=== PATIENT | female | born 1990 | race African-American/Black ===

== ENCOUNTER 2019-12-23 16:31 | Emergency (ER) | payer MEDICARE ==
--- NOTE | 2019-12-23 17:38 | ER Document Report ---
ED Psych Disorder / Suicide - General Mode of Arrival: Ambulatory Information source: Patient <ABRAHAM THOMPSON - Last Filed: 12/23/19 17:55> <OFELIA OMER - Last Filed: 12/24/19 00:44> <WANDER BONILLA - Last Filed: 12/24/19 10:36> <JULIEN HOLT Broderick - Last Filed: 12/24/19 11:18> - General Chief Complaint: Psych Problem Stated Complaint: EVALUATION Time Seen by Provider: 12/23/19 16:56 Primary Care Provider: [facility] [Outside] - Follow up as needed [facility] [Outside] - Follow up in 3-5 days Notes: Patient is a 29-year-old female presenting to the emergency department with chief complaint of depression and anxiety. Patient reports that she just moved to [place] a few days ago. She states that she is taking medication for depression and anxiety but states she does not feel that it is helping her. She arrives to the emergency department with nbw-[id number]-[id number]-old son Zechariah. She is calm and cooperative. She reports feeling very overwhelmed with her situation, she is staying in a hotel currently and has no resources in [place]. She has no family support or friends. She reports that several years ago she did attempt suicide by overdose but never told anybody about it so she did not seek medical treatment. She does report that for the last few months she has been having suicidal thoughts although she has not told anybody about these as she was worried that they would think she cannot take care of her child. *Of note, patient and child both appear very clean, well groomed and well taken care of. The child is smiling, interactive and running around the room. There is no indication to me that there is any abuse or neglect going on with the child. (ABRAHAM THOMPSON) - Related Data Allergies/Adverse Reactions: aripiprazole [From [facility]] Adverse Reaction (Verified 12/23/19 19:00) Past Medical History - General Information source: Patient - Social History Smoking Status: Unknown if Ever Smoked Family History: Reviewed & Not Pertinent Patient has suicidal ideation: Yes Patient has homicidal ideation: No - Medical History Medical History: Other - Pituitary gland tumor Psychiatric Medical History: Reports: Hx Anxiety, Hx Depression <ABRAHAM THOMPSON - Last Filed: 12/23/19 17:55> Review of Systems - Review of Systems Neurological/Psychological: See HPI, Headaches -: Yes All other systems reviewed and negative <ABRAHAM THOMPSON - Last Filed: 12/23/19 17:55> Physical Exam <ABRAHAM THOMPSON - Last Filed: 12/23/19 17:55> - Vital signs Vitals: Temp 99.1 F 12/23/19 16:34 - Notes Notes: PHYSICAL EXAMINATION: GENERAL: Well-appearing, well-nourished and in no acute distress. HEAD: Atraumatic, normocephalic. EYES: Pupils equal round and reactive to light, extraocular movements intact, conjunctiva are normal. ENT: Nares patent, oropharynx clear without exudates. Moist mucous membranes. NECK: Normal range of motion, supple without lymphadenopathy LUNGS: Breath sounds clear to auscultation bilaterally and equal. No wheezes rales or rhonchi. HEART: Regular rate and rhythm without murmurs ABDOMEN: Soft, nontender, nondistended abdomen. No guarding, no rebound. No masses appreciated. Female : deferred Musculoskeletal: Normal range of motion, no pitting or edema. No cyanosis. NEUROLOGICAL: Cranial nerves grossly intact. Normal speech, normal gait. Normal sensory, motor exams PSYCH: Flat affect, tearful. SKIN: Warm, Dry, normal turgor, no rashes or lesions noted. (ABRAHAM THOMPSON) Course <ABRAHAM THOMPSON - Last Filed: 12/23/19 17:55> - Laboratory Result Diagrams: 12/23/19 18:00 12/23/19 18:00 - Diagnostic Test Radiology reviewed: Reports reviewed <OFELIA OMER - Last Filed: 12/24/19 00:44> - Laboratory Result Diagrams: 12/23/19 18:00 12/23/19 18:00 <WANDER BONILLA - Last Filed: 12/24/19 10:36> - Laboratory Result Diagrams: 12/23/19 18:00 12/23/19 18:00 <JULIEN HOLT - Last Filed: 12/24/19 11:18> - Re-evaluation Re-evalutation: 12/23/19 17:54 Patient came into the emergency department in hopes of getting help with her mental health medications. She reports she is taking medication for depression and anxiety and states it is not helping. Ultimately during interview patient does endorse suicidal thoughts over the last few months but states she has not acted on them. Her 2-year-old son is here in the emergency department with her. She has no family or friends in the area. Blane interviewed the patient initially with me, the plan will be to keep the patient here in the emergency d epartment due to her suicidal ideations. Blane will call [facility]/social welfare clerk in hopes of obtaining some respite care for the child while the mother is here seeking help. 12/23/19 17:55 Handoff given to CRISTA Majano. Patient currently pending medical clearance. I did add on a head CT as patient reports history of pituitary gland tumor states that she has not had an MRI or CT done on this in several years and she has been having headaches. (ABRAHAM THOMPSON) 12/23/19 21:56 Patient's resting comfortably all test results and CAT scan results were reviewed with patient. She is medically clear pending placement for suicidal ideation (OFELIA OMER) 12/24/19 11:17 I have spoken with Blane Ragland the psychiatric team, I have evaluated the patient. CPS is in speaking with the patient at this time. Patient admits that she lied to providers yesterday when coming in about being suicidal she denies suicidal or homicidal ideation. She states she just did not have a place to stay and had no way to pay for the hotel they were staying in so she thought that she would be able to at least have a place to stay if she told people that she was suicidal. The psychiatric team has a care plan in place for the patient that she is in agreement with. Will discharge home at this time after CPS has finished with the patient (JULIEN HOLT) - Vital Signs Vital signs: Temp Pulse Resp BP Pulse Ox 98.4 F 86 17 105/63 100 12/24/19 08:17 12/24/19 08:17 12/24/19 08:17 12/24/19 08:17 12/24/19 08:17 - Laboratory Laboratory results interpreted by me: 12/23/19 12/23/19 12/23/19 18:00 18:00 18:00 Hgb 10.3 L Hct 32.2 L MCV 74 L MCH 23.6 L MCHC 31.9 L RDW 17.3 H Ur Leukocyte Esterase LARGE H Salicylates < 1.0 L Acetaminophen < 10 L - EKG Interpretation by Me Additional EKG results interpreted by me: 12/23/19 22:06 ekg seen and evaluated by ED. DR Kenny. NSR no acute STEMI,rate 90 (OFELIA OMER) Discharge <ABRAHAM THOMPSON - Last Filed: 12/23/19 17:55> <OFELIA OMER - Last Filed: 12/24/19 00:44> <WANDER BONILLA - Last Filed: 12/24/19 10:36> <JULIEN HOLT - Last Filed: 12/24/19 11:18> - Discharge Clinical Impression: Homelessness Condition: Stable Disposition: HOME, SELF-CARE Additional Instructions: You have been evaluated by both medical and behavioral health teams for your reported thoughts of wanting to harm yourself and request of medication adjustments and have been deemed appropriate for discharge. While in the emergency department you received the following services: Medical screening and assessment, nursing services, dietary services, one-on-one counseling and/or psychotherapy, environmental services, and continuous observation by a patient drug safety specialist. You are reminded of the importance on providing correct information when seeking assistance so appropriate services can by identified and referrals made. You are to meet with [facility] CPS at 1100-1130am this morning to discuss with them the next steps in regards to your son. A travel voucher was secured by [facility] for you to take a taxi to the [facility] building. You are recommended to continue working with [facility] to establish a local outpatient mental health provider; they will be contacting you today. You disclosed you have over 2 weeks of medications, so should be covered until you can get outpatient appointments. Medication adjustment were not done as you are experiencing temporary situational crisis that you are now getting assistance through from the appropriate programs/providers. Your medication can be evaluated with your outpatient mental health provider at your upcoming appointment. You are recommended to obtain both medication management for symptom management and therapeutic services to build your positive coping skills and work through your thoughts and emotions surrounding your recent traumas. AT ANY TIME, IF YOUR SYMPTOMS CHANGE SIGNIFICANTLY OR WORSEN OR YOU DEVELOP NEW SYMPTOMS, RETURN TO THE EMERGENCY DEPARTMENT IMMEDIATELY FOR RE-EVALUATION. Referrals: [facility] [Outside] - Follow up in 3-5 days [facility] [Outside] - Follow up as needed
[2019-12-23 18:14] LABS: ABSOLUTE EOSINOPHILS # (AUTO) 0.2 10^3/uL (0.0-0.6); ABSOLUTE LYMPHOCYTES (AUTO) 2.2 10^3/uL (0.5-4.7); ABSOLUTE MONOCYTES (AUTO) 0.5 10^3/uL (0.1-1.4); ABSOLUTE NEUT (AUTO) 4.8 10^3/uL (1.7-8.2); BASOPHILS % (AUTO) 0.5 % (0-2); EOSINOPHILS % (AUTO) 2.1 % (0-6); HEMATOCRIT 32.2 % (36.0-47.0); HEMOGLOBIN 10.3 g/dL (12.0-15.5); LYMPHOCYTES % (AUTO) 28.6 % (13-45); MEAN CORPUSCULAR HEMOGLOBIN 23.6 pg (27.0-33.4); MEAN CORPUSCULAR HGB CONC 31.9 g/dL (32.0-36.0); MEAN CORPUSCULAR VOLUME 74 fl (80-97); MONOCYTES % (AUTO) 6.6 % (3-13); PLATELET COUNT 437 10^3/uL (150-450); RED BLOOD COUNT 4.34 10^6/uL (3.72-5.28); RED CELL DISTRIBUTION WIDTH 17.3 % (11.5-14.0); SEGMENTED NEUTROPHILS % (AUTO) 62.2 % (42-78); TOTAL CELLS COUNTED % (AUTO) 100 %; WHITE BLOOD COUNT 7.6 10^3/uL (4.0-10.5)
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
[2019-12-23 18:33] LABS: ALBUMIN 4.1 g/dL (3.5-5.0); ALKALINE PHOSPHATASE 63 U/L (38-126); ANION GAP 10 (5-19); ASPARTATE AMINO TRANSFERASE 18 U/L (14-36); BILIRUBIN,TOTAL 0.2 mg/dL (0.2-1.3); BLOOD UREA NITROGEN 10 mg/dL (7-20); CARBON DIOXIDE 25 mmol/L (22-30); CHLORIDE 103 mmol/L (98-107); GLUCOSE 100 mg/dL (75-110); POTASSIUM 4.1 mmol/L (3.6-5.0)
[2019-12-23 18:36] LABS: APPEARANCE,URINE SLIGHTLY-CLOUDY; BILIRUBIN,URINE NEGATIVE (NEGATIVE); COLOR,URINE YELLOW; GLUCOSE, URINE NEGATIVE (NEGATIVE); KETONES,URINE NEGATIVE (NEGATIVE); LEUKOCYTE ESTERASE,URINE LARGE (NEGATIVE); NITRITE,URINE NEGATIVE (NEGATIVE); PROTEIN,URINE NEGATIVE (NEGATIVE); URINE SPECIFIC GRAVITY 1.019; UROBILINOGEN,URINE NEGATIVE mg/dL (<2.0)
[2019-12-23 18:37] LABS: ACETAMINOPHEN < 10 ug/mL (10-30); ALCOHOL < 10 mg/dL (NONE DETECTED); SALICYLATE < 1.0 mg/dL (2.0-20.0)
[2019-12-23 18:46] LABS: URINE AMPHETAMINES SCREEN NEGATIVE; URINE BARBITURATES SCREEN NEGATIVE; URINE BENZODIAZEPINES SCREEN NEGATIVE; URINE COCAINE SCREEN NEGATIVE; URINE MARIJUANA (THC) SCREEN NEGATIVE; URINE METHADONE SCREEN NEGATIVE; URINE PHENCYCLIDINE SCREEN NEGATIVE
--- NOTE | 2019-12-23 21:42 | RADIOLOGY REPORT (SQ) ---
EXAM DESCRIPTION: CT HEAD WITHOUT IV CONTRAST COMPLETED DATE/TME: 12/23/2019 17:49 CLINICAL HISTORY: 29 years Female headaches, hx of pituitary tumor COMPARISON: 10/19/2019. TECHNIQUE: Contiguous axial CT images obtained through the brain without IV contrast. This exam was performed according to our department optimization program which includes automated exposure control, adjustment of the mA and/or kv according to patient size and/or use of iterative reconstruction technique. FINDINGS: The ventricles and sulci are within normal limits for the patient's age. No midline shift or mass effect. No masses identified. No acute intracranial hemorrhage. No fluid or significant mucosal thickening in the visualized paranasal sinuses. No depressed calvarial fractures. IMPRESSION: No acute intracranial abnormality is identified.
--- NOTE | 2019-12-23 21:42 | EKG REPORT ---
SEVERITY:- NORMAL ECG - SINUS RHYTHM : Confirmed by: Britney Vicente MD 23-Dec-2019 21:41:42
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
[2019-12-24 11:47] VITALS: BP 106/76
== END 2019-12-24 11:47 | disposition home or self-care (01) ==
LOC: ER 16:31
DX: Z59.0 Homelessness (principal); F32.9 Major depressive disorder, single episode, unspecified; F41.9 Anxiety disorder, unspecified; R51 Headache; Z79.899 Other long term (current) drug therapy
CPT/HCPCS: 36415; 70450; 80053; 80307; 81001; 84443; 84703; 85025; 93005; 93010; 99285

== ENCOUNTER 2019-12-26 16:45 | Emergency (ER) | payer MEDICARE, MEDICAID ==
[2019-12-26 17:22] LABS: ABSOLUTE LYMPHOCYTES (AUTO) 1.6 10^3/uL (0.5-4.7); ABSOLUTE MONOCYTES (AUTO) 0.5 10^3/uL (0.1-1.4); ABSOLUTE NEUT (AUTO) 6.5 10^3/uL (1.7-8.2); BASOPHILS % (AUTO) 0.4 % (0-2); EOSINOPHILS % (AUTO) 0.3 % (0-6); HEMATOCRIT 32.3 % (36.0-47.0); HEMOGLOBIN 10.3 g/dL (12.0-15.5); LYMPHOCYTES % (AUTO) 18.7 % (13-45); MEAN CORPUSCULAR HEMOGLOBIN 23.5 pg (27.0-33.4); MEAN CORPUSCULAR VOLUME 74 fl (80-97); MONOCYTES % (AUTO) 5.9 % (3-13); PLATELET COUNT 443 10^3/uL (150-450); RED BLOOD COUNT 4.39 10^6/uL (3.72-5.28); RED CELL DISTRIBUTION WIDTH 17.2 % (11.5-14.0); SEGMENTED NEUTROPHILS % (AUTO) 74.7 % (42-78); TOTAL CELLS COUNTED % (AUTO) 100 %; WHITE BLOOD COUNT 8.7 10^3/uL (4.0-10.5)
[2019-12-26 17:39] LABS: ALBUMIN 4.7 g/dL (3.5-5.0); ALKALINE PHOSPHATASE 82 U/L (38-126); ANION GAP 13 (5-19); ASPARTATE AMINO TRANSFERASE 21 U/L (14-36); BILIRUBIN,TOTAL 0.4 mg/dL (0.2-1.3); BLOOD UREA NITROGEN 13 mg/dL (7-20); CALCIUM 9.7 mg/dL (8.4-10.2); CARBON DIOXIDE 22 mmol/L (22-30); CHLORIDE 104 mmol/L (98-107); GLUCOSE 101 mg/dL (75-110); POTASSIUM 3.7 mmol/L (3.6-5.0)
[2019-12-26 17:40] LABS: ACETAMINOPHEN < 10 ug/mL (10-30); ALCOHOL < 10 mg/dL (NONE DETECTED); SALICYLATE < 1.0 mg/dL (2.0-20.0)
--- NOTE | 2019-12-26 18:23 | EKG REPORT ---
SEVERITY:- BORDERLINE ECG - SINUS TACHYCARDIA BORDERLINE T ABNORMALITIES, DIFFUSE LEADS : Confirmed by: Britney Vicente MD 26-Dec-2019 18:22:22
[2019-12-26] MEDS ORDERED: NORMAL SALINE 1000 ML 1,000 ML IV ONE (18:43)
--- NOTE | 2019-12-26 19:19 | RADIOLOGY REPORT (SQ) ---
EXAM DESCRIPTION: CHEST SINGLE VIEW IMAGES COMPLETED DATE/TIME: 12/26/2019 6:56 pm REASON FOR STUDY: hypoxia COMPARISON: None. EXAM PARAMETERS: NUMBER OF VIEWS: One view. TECHNIQUE: Single frontal radiographic view of the chest acquired. RADIATION DOSE: NA LIMITATIONS: None. FINDINGS: LUNGS AND PLEURA: No opacities, masses or pneumothorax. No pleural effusion. MEDIASTINUM AND HILAR STRUCTURES: No masses. Contour normal. HEART AND VASCULAR STRUCTURES: Heart normal in size. Normal vasculature. BONES: No acute findings. HARDWARE: None in the chest. OTHER: No other significant finding. IMPRESSION: NO ACUTE RADIOGRAPHIC FINDING IN THE CHEST. TECHNICAL DOCUMENTATION: JOB ID: [id number] 2010 [employer]- All Rights Reserved Reading location - IP/workstation name: [email or web address]
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
[2019-12-26 20:51] LABS: URINE AMPHETAMINES SCREEN NEGATIVE; URINE BARBITURATES SCREEN NEGATIVE; URINE COCAINE SCREEN NEGATIVE; URINE MARIJUANA (THC) SCREEN NEGATIVE; URINE METHADONE SCREEN NEGATIVE; URINE PHENCYCLIDINE SCREEN NEGATIVE
[2019-12-26 20:52] LABS: URINE BENZODIAZEPINES SCREEN UNCONFIRMED POSITIVE
[2019-12-26 20:54] LABS: APPEARANCE,URINE CLOUDY; BILIRUBIN,URINE NEGATIVE (NEGATIVE); COLOR,URINE YELLOW; GLUCOSE, URINE NEGATIVE (NEGATIVE); KETONES,URINE 20 mg/dL (NEGATIVE); LEUKOCYTE ESTERASE,URINE MODERATE (NEGATIVE); NITRITE,URINE NEGATIVE (NEGATIVE); PROTEIN,URINE 30 mg/dL (NEGATIVE); URINE SPECIFIC GRAVITY 1.025; UROBILINOGEN,URINE NEGATIVE mg/dL (<2.0)
--- NOTE | 2019-12-26 21:09 | ER Document Report ---
ED General - General Chief Complaint: Psych Problem Stated Complaint: IVC Time Seen by Provider: 12/26/19 18:22 - HPI Notes: Chief complaint: Suicidal ideation with intentional overdose Wellbutrin HPI: This is a 29-year-old female seen for evaluation of suicidal ideation with intentional overdose of Wellbutrin. Patient has a history of borderline personality and was seen here for psychiatric evaluation earlier in the week and released. She is currently homeless. She states that she was able to borrow some money and found herself hotel room last night. She is upset because [id number]-old child has recently been taken away by home health care social worker. She is depressed and decided that she wanted to commit suicide. States that she ingested 30 tablets Wellbutrin 100 mg around 9 PM last night. She vomited several times after the ingestion. She felt extremely dizzy and had some visual hallucinations around 2 AM. She did not seek medical attention or call EMS at that time. She was evaluated by mobile crisis this afternoon and they petitioned her for IVC and she was transported here via law enforcement. She says she still feels very depressed and expresses her wish to . She denies abuse of alcohol or street drugs. She denies any intent to harm anyone else. She says she feels slightly tremulous and dizzy but otherwise has no other specific complaints at this time. - Related Data Allergies/Adverse Reactions: aripiprazole [From [facility]] Adverse Reaction (Verified 12/23/19 19:00) Home Medications: KLONOPIN. WELLBUTRIN Past Medical History - General Information source: Patient, [facility] Records - Social History Smoking Status: Current Every Day Smoker Chew tobacco use (# tins/day): No Frequency of alcohol use: None Drug Abuse: None Family History: Reviewed & Not Pertinent Patient has homicidal ideation: No Psychiatric Medical History: Reports: Hx Anxiety, Hx Borderline Personality Disorder, Hx Depression Past Surgical History: Reports: Hx Section Review of Systems - Review of Systems Notes: Constitutional: Negative for fever. HENT: Negative for sore throat. Eyes: Negative for visual changes. Cardiovascular: Negative for chest pain. Respiratory: Negative for shortness of breath. Gastrointestinal: As per HPI. Genitourinary: Negative for dysuria. Musculoskeletal: Negative for back pain. Skin: Negative for rash. Neurological: Mild tremor. Negative for headaches, weakness or numbness. 10 point ROS negative except as marked above and in HPI. Physical Exam - Vital signs Vitals: Temp Pulse Resp BP Pulse Ox 98.1 F 105 H 18 142/76 H 100 12/26/19 16:52 12/26/19 16:52 12/26/19 16:52 12/26/19 16:52 12/26/19 16:52 - Notes Notes: GENERAL: Well-developed well-nourished appearing in no acute distress. SKIN: Good turgor no rashes. HEAD: Normocephalic atraumatic. EYES: PERRLA. EOMI. Conjunctivae and sclerae clear. EARS: CANALS AND TMS CLEAR. NOSE: CLEAR. MOUTH: Moist mucosa. Good dentition. No stridor or edema. No drooling. NECK: Supple. No masses or thyromegaly. No adenopathy. Carotids 2+ without bruits. No JVD. BACK: Symmetrical without tenderness. CHEST: Respirations unlabored. Breath sounds clear and symmetrical. HEART: Regular rhythm. No murmur gallop or rub. ABDOMEN: Soft nontender without masses, organomegaly or rebound. Bowel sounds normally active. No bruits. GENITALIA: Deferred. EXTREMITIES: No edema. No calf tenderness. Cap refill less than 1.5 seconds. Dorsalis pedis and posterior tibial pulses 3+ and symmetrical. NEUROLOGICAL: GCS 15. Alert and oriented x3. Mild generalized tremor. Normal gait. Fluent speech. Cranial nerves II through XII intact. Sensorimotor and cerebellar normal. Normal tone. PSYCHIATRIC: Flat affect. Course - Re-evaluation Re-evalutation: 12/26/19 21:29 This lady is mildly tachycardic and has minimal tremor. Her evaluation medically is otherwise unremarkable. Her ingestion was 24 hours ago. Her EKG shows normal intervals and axis. Her acetaminophen and salicylate levels are nontoxic. Her urine drug screen was remarkable only for benzodiazepine. Her alcohol was not elevated. Findings have been discussed with [place] poison control. They feel we should keep her here in the emergency department on monitoring manager until her tremor resolves. After that she will be medically clear. She is at this time already on IVC. She has been seen by mental health team. They will be seeking inpatient placement. 12/27/19 02:30 Patient is hemodynamically stable at this time and all tremor has resolved. Her pulse rate is 83. She is medically cleared for inpatient psychiatric placement. - Vital Signs Vital signs: Temp Pulse Resp BP Pulse Ox 98.1 F 105 H 23 H 92/54 L 97 12/26/19 16:52 12/26/19 16:52 12/27/19 00:01 12/27/19 00:01 12/27/19 00:01 - Laboratory Result Diagrams: 12/26/19 17:04 12/26/19 17:04 Laboratory results interpreted by me: 12/26/19 12/26/19 12/26/19 17:04 17:04 20:21 Hgb 10.3 L Hct 32.3 L MCV 74 L MCH 23.5 L RDW 17.2 H Urine Protein 30 H Urine Ketones 20 H Ur Leukocyte Esterase MODERATE H Salicylates < 1.0 L Acetaminophen < 10 L - EKG Interpretation by Me Additional EKG results interpreted by me: 12/26/19 21:12 Twelve-lead EKG from 1700 hrs. reviewed contemporaneously by me showing sinus tachycardia with a rate of 105. Intervals normal. Diffuse nonspecific T wave changes. QRS axis is +[address] shift. Discharge - Discharge Clinical Impression: Suicidal ideation, Intentional overdose Wellbutrin, Homelessness, Borderline personality disorder in adult Disposition: PSYCH HOSP/UNIT
[2019-12-27 14:05] VITALS: BP 105/72
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
== END 2019-12-27 14:05 | disposition home or self-care (01) ==
LOC: ER 16:45
DX: T43.292A Poisoning by other antidepressants, intentional self-harm, initial encounter (principal); R42 Dizziness and giddiness; R25.1 Tremor, unspecified; R00.0 Tachycardia, unspecified; F60.3 Borderline personality disorder; F41.9 Anxiety disorder, unspecified; F32.9 Major depressive disorder, single episode, unspecified; Z79.899 Other long term (current) drug therapy; F17.200 Nicotine dependence, unspecified, uncomplicated; Z59.0 Homelessness; Z63.79 Other stressful life events affecting family and household
CPT/HCPCS: 93005; 99285; 96360; 36415; 80307 ×4; 84703; 85025; 80053; 81001; 71045; 93010; J7030

== ENCOUNTER → 2020-03-04 | Outpatient (CLI) | payer MEDICARE, MEDICAID ==
[2020-03-05 08:09] LABS: LUTEINIZING HORMONE 6.1 mIU/mL (.); PROLACTIN 12.4 ng/mL (4.8-23.3)
== END ==
LOC: OD 11:39
PROVIDERS: ATTEND Family Medicine
DX: Z09 Encounter for follow-up examination after completed treatment for conditions other than malignant neoplasm (principal); Z86.018 Personal history of other benign neoplasm
CPT/HCPCS: 36415; 82533; 83001; 83002; 84146; 84443

== ENCOUNTER → 2020-06-10 | Outpatient (CLI) | payer MEDICARE, MEDICAID ==
[2020-06-10 13:55] VITALS: BP 99/72
--- NOTE | 2020-06-10 13:55 | ER RDC ASSESSMENT REPORT ---
Intake - In the Last 14 days Have you traveled outside [place]?: No Have you been in close contact with someone CONFIRMED: No Worked in Healthcare?: No - Symptoms Subjective Fever([place] feverish): No Chills: No Muscule Aches: No Runny Nose: No Sore Throat: Yes Cough (New or worsening chronic cough): Yes Shortness of breath: No Nausea or Vomiting: No Headache: Yes Abdominal Pain: No Diarrhea(3 or more loose stools in last 24 hours): No - Do you have any of the following Chronic lung disease: Asthma or emphysema or COPD: No Cystic Fibrosis: No Diabetes: No High Blood Pressure: No Cardiovascular Disease: No Chronic Kidney Disease: No Chronic Liver Disease: No Chronic blood disorder like Sickle Cell Disease: No Weak immune system due to disease or medication: No Neurologic condition that limits movement: No Developmental delay - Moderate to Severe: No Recent (within past 2 weeks) or current : No Morbid Obesity (>100 pounds over ideal weight): No - Objective Temperature: 98.2 F Pulse Rate: 95 Respiratory Rate: 18 Blood Pressure: 99/72 O2 Sat by Pulse Oximetry: 96 Objective: Given above, testing performed: flu, strep, covid Disposition: Home; Selfcare General - General Stated Complaint: cough, sore throat, fatigue Time Seen by Provider: 06/10/20 13:00 Mode of Arrival: Ambulatory Information source: Patient - HPI Notes: 30-year-old female presents to [facility] clinic for COVID-19 testing. Patient reports no known contact with Covid positive individual. Onset of symptoms 05/30/2020. Patient is reporting intermittent sore throat, dry cough, and headache as well as fatigue. Denies any fever, chills, muscle aches, runny nose, shortness of breath, nausea or vomiting, abdominal pain or diarrhea. - Related Data Allergies/Adverse Reactions: aripiprazole [From [email or web address]] Adverse Reaction (Verified 12/23/19 19:00) Past Medical History - General Information source: Patient - Social History Smoking Status: Current Every Day Smoker Cigarette use (# per day): Yes - 7 Family History: Reviewed & Not Pertinent - Past Medical History Cardiac Medical History: Reports: None Pulmonary Medical History: Reports: None EENT Medical History: Reports: None Neurological Medical History: Reports: None Endocrine Medical History: Reports: None Renal/ Medical History: Reports: None Malignancy Medical History: Reports: None GI Medical History: Reports: None Musculoskeletal Medical History: Reports None Skin Medical History: Reports None Psychiatric Medical History: Reports: Hx Anxiety, Hx Borderline Personality Disorder, Hx Depression Traumatic Medical History: Reports: None Infectious Medical History: Reports: None Past Surgical History: Reports: Hx Section Physical Exam - General General appearance: Appears well, Alert In distress: None Notes: PHYSICAL EXAMINATION: GENERAL: Well-appearing and in no acute distress. HEAD: Atraumatic, normocephalic. EYES: sclera anicteric, conjunctiva are normal. ENT: nares patent. Moist mucous membranes. NECK: Normal range of motion, supple without lymphadenopathy. LUNGS: No increased work of breathing. Lung sounds CTAB and equal. No wheezes rales or rhonchi. HEART: Regular rate and rhythm without murmurs. ABDOMEN: Soft, nontender, normal bowel sounds, no guarding. EXTREMITIES: Normal range of motion, no pitting edema. No cyanosis. NEUROLOGICAL: A&O x 3. Normal speech. PSYCH: Normal mood, normal affect. SKIN: Warm, Dry, normal turgor, no rashes or lesions noted Patient Education/Counseling Counseling/Education: Patient presents with symptoms associated with possible Covid 19 infection. Patient does not have emergency worrying symptoms such as difficulty breathing, shortness of breath, chest pain, pressure, confusion or cyanosis. Patient appears suitable for discharge as vital signs are stable and patient is nontoxic in appearance. Good return precautions have been discussed with patient, patient verbalized understanding and is agreeable with discharge plan of care at this time. Guidance for worsening S/SX: As a person under investigation for Covid 19, the [place] department of Health and Human Services, division of public health advises you to adhere to the following guidance until your test results are reported to you. If your test result is positive, you will receive additional information from your provider and your local health department at that time. Remain at home until you are cleared by the health provider or public health authorities. Keep a log of visitors to your home, notify any visitors to your home of your isolation status. If you plan to move to a new address or leave the county, notify the local health department in your County. Call your doctor or seek care if you have an urgent medical need. Before seeking medical care, call ahead to get instructions from the provider before arriving at the medical office clinic or hospital. Notify them that you are being tested for the virus that causes Covid 19 so that arrangements can be made, as necessary, to prevent transmission to others in the healthcare setting. Next, notify the local health department in your county. If a medical emergency arises and you need to call 911, inform the first responders that you are being tested for the virus that causes Covid 19. Next, notify the local health department in your county. RDC Discharge - Discharge Clinical Impression: Encounter for screening laboratory testing for COVID-19 virus Upper respiratory infection Qualifiers: URI type: unspecified URI Qualified Code(s): J06.9 - Acute upper respiratory infection, unspecified Condition: Good Disposition: Home; Selfcare
[2020-06-10 15:12] LABS: A TYPE INFLUENZA AG NEGATIVE (NEGATIVE); B INFLUENZA AG NEGATIVE (NEGATIVE)
== END ==
LOC: RDC 12:34
PROVIDERS: ATTEND Registered Nurse
DX: J06.9 Acute upper respiratory infection, unspecified (principal); Z20.828 Contact with and (suspected) exposure to other viral communicable diseases; R05 Cough; J02.9 Acute pharyngitis, unspecified; R51.9 Headache, unspecified; F17.210 Nicotine dependence, cigarettes, uncomplicated; R53.83 Other fatigue; F32.9 Major depressive disorder, single episode, unspecified; Z88.8 Allergy status to other drugs, medicaments and biological substances
CPT/HCPCS: 87070; 87880; 87804; U0003; C9803; 87635; 99201; 99211

== ENCOUNTER → 2020-08-17 | Outpatient (CLI) | payer MEDICARE, MEDICAID ==
[2020-08-17 17:07] LABS: APPEARANCE,URINE CLEAR; BILIRUBIN,URINE NEGATIVE (NEGATIVE); COLOR,URINE STRAW; GLUCOSE, URINE NEGATIVE (NEGATIVE); KETONES,URINE NEGATIVE (NEGATIVE); LEUKOCYTE ESTERASE,URINE LARGE (NEGATIVE); NITRITE,URINE NEGATIVE (NEGATIVE); PROTEIN,URINE NEGATIVE (NEGATIVE); URINE SPECIFIC GRAVITY 1.006; UROBILINOGEN,URINE NEGATIVE mg/dL (<2.0)
[2020-08-17 18:20] LABS: CHLAM PCR NOT DETECTED (NOT DETECT)
[2020-08-19 05:38] LABS: HEPATITIS C VIRUS AB <0.1 s/co ratio (0.0-0.9)
[2020-08-19 07:16] LABS: HEPATITIS B SURFACE AB QUAL Reactive (.); HEPATITS B SURFACE ANTIGEN Negative (Negative)
== END ==
LOC: OD 15:03
PROVIDERS: ATTEND Family Medicine
DX: R35.0 Frequency of micturition (principal); Z11.3 Encounter for screening for infections with a predominantly sexual mode of transmission; Z20.6 Contact with and (suspected) exposure to human immunodeficiency virus [HIV]; Z72.51 High risk heterosexual behavior
CPT/HCPCS: 36415; 81001; 86592; 86701; 86706; 86803; 86804; 87086; 87340; 87491; 87591